=== PATIENT | male | born 1995 | race African-American/Black ===

== ENCOUNTER 2017-03-27 16:35 | Emergency (ER) | payer MEDICAID ==
[~2017-03-27] VITALS: Ht 172.7 cm; Wt 67.0 kg
[2017-03-27 16:40] VITALS: BP 140/82
[2017-03-27] MEDS ORDERED: KETOROLAC 30MG/ML VIAL IM ONE (19:00)
== END 2017-03-27 21:20 | disposition home or self-care (01) ==
LOC: ER 17:12
DX: S93.401A Sprain of unspecified ligament of right ankle, initial encounter (principal); V48.0XXA Car driver injured in noncollision transport accident in nontraffic accident, initial encounter; Y93.89 Activity, other specified; Y92.411 Interstate highway as the place of occurrence of the external cause
CPT/HCPCS: 29515; 73610; 96372; 99284; J1885

== ENCOUNTER 2017-12-03 10:51 | Emergency (ER) | payer MEDICAID ==
[~2017-12-03] VITALS: Ht 167.6 cm; Wt 66.0 kg
[2017-12-03] MEDS ORDERED: KETOROLAC 60MG/2ML VIAL IM ONE (13:00)
[2017-12-03] MEDS ORDERED: ACETAMINOPHEN WITH CODEINE 300/30MG TABLET PO ONE (13:00)
[2017-12-03 13:33] VITALS: BP 136/75
== END 2017-12-03 14:32 | disposition home or self-care (01) ==
LOC: ER 12:55
DX: M54.5 Low back pain (principal)
CPT/HCPCS: 72100; 96372; 99284; J1885